=== PATIENT | female | born 1965 | race Caucasian/White ===

== ENCOUNTER 2023-02-16 06:15 | Emergency (ER) | payer OTHER ==
--- OUTSIDE RECORDS SUMMARY | 2023-02-16 06:20 | XMS REPORT | Continuity of Care Document ---
:1965 Author Organization [facility] Address [address] [place] [address] [place] [id number] Care Team Providers Name Role Phone No, Pcp [facility] Primary Care Physician Unavailable PROVIDER, AFFILIATE Attending Clinician Unavailable IVANA NORIEGA Attending Clinician Unavailable VIVIAN HERNANDEZ Attending Clinician Unavailable RO SAM Attending Clinician Unavailable CHARLENE WILL Attending Clinician Unavailable ROBER GRANT Attending Clinician Unavailable ABBI WEBB Attending Clinician Unavailable JESSY ANGELES Attending Clinician Unavailable MD MICHAEL Attending Clinician Unavailable 39, HOLTER Attending Clinician Unavailable CHAY BAKER Attending Clinician Unavailable LAB90 Attending Clinician Unavailable TOMOGRAPHY, CK OPTICAL COHERENCE Attending Clinician Unavail able Mary MCKINLEY, Vivian Ronquillo Attending Clinician [phone] Payers Payer Name Policy Type Policy Number Effective Date Expiration Date S armida [employer] TXP 7 [id number] 2021 CLASSIC NO PREMIUM 00:00:00 R2T Problems Condition Condition Condition Status Onset Resolution Last Treating Co mments Source Name Details Category Date Date Treatment Clinician Date Immunocomp Immunocomp Disease Active 2021-04 K elsey romised romised 2-30 [facility] 00:00: - 00 Externa l Diabetes Diabetes Disease Active 2021-04 Kelse y mellitus mellitus 1-11 Seybol d type 2 type 2 00:00: - without without 00 Externa retinopath retinopath l y y Peripheral Peripheral Disease Active 2021-04 K viridiana sensory sensory 1-11 Seybold neuropathy neuropathy 00:00: - due to due to 00 Externa type 2 type 2 l diabetes diabetes mellitus mellitus Peripheral Peripheral Disease Active 2021-04 Tahmina kemp vascular vascular 1-11 Seybol d disease disease 00:00: - 00 Externa l Type 2 Type 2 Disease Active Luz Marina diabetes diabetes 808 Seybol d mellitus mellitus 00:00: - with with 00 Externa diabetic diabetic l neuropathy neuropathy , without , without long-term long-term current current use of use of insulin insulin (HCC) - (HCC) - Controlled Controlled Primary Primary Disease Active Luz Marina hypertensi hypertensi 12-02 Se ybold on - Not on - Not 00:00: - Controlled Controlled 00 Ex terna l Hyperlipid Hyperlipid Disease Active Tahmina kemp emia emia 12-02 Seybold 00:00: - 00 Externa l Psoriasis Psoriasis Disease Active Anselmo sey - Not - Not 808 Seybold Controlled Controlled 00:00: - 00 Externa l Allergies, Adverse Reactions, Alerts Allergy Allergy Status Severity Reaction(s) Onset Inactive Treating Comm ents Source Name Type Date Date Clinician ERYTHROM [facility] Erythrom Propensi [facility] adverse 00:[facility]: Medical reaction 00 Center s Metformi Propensi Active Luz Marina n ty to 9-11 Seybold adverse 00:00: - reaction 00 Externa s l Erythrom Propensi Active Reaction: Anselmo sey ycin ty to 9-10 body Seybold [facility] adverse 00:00: tremors - reaction 00 and Externa s stomach l upset, Reaction: body tremors and stomach upset Lisinopr Propensi Active Swelling Faby ey il ty to 7-13 Seybold adverse 00:00: - reaction 00 Externa s l Social History Social Habit Start Date Stop Date Quantity Comments Source History SDOH [facility] Std Dr[facility] History SDOH [facility] Alcohol Binge Medical July ter Tobacco use and 2021-12-02 2021-12-02 Smokeless tobacco Ke laloey Seybold - exposure 00:00:00 00:00:00 non-user External Alcohol intake 2020-09-15 2020-09-[address] [facility] 00:[facility]00 00:00:00 non-drinker Medical Cente r (finding) History SDOH 2020-09-15 2020-09-[address] [facility] Alcohol Frequency 00:00:00 00:00:00 [facility] Center Sex [birth year] GEORGE [place] 00:00:00 00:00:00 [facility] Center Smoking Status Start Date Stop Date Source Never smoked tobacco Luz Marina Seyb old - External Medications Ordered Filled Start Stop Current Ordering Indication Dosage Frequency Signature Comments Components Source Medication Medication Date Date Medication? Clinician (SIG) Name Name ASPIRIN 81 Yes Take by Faby ey OR 1-17 mouth Seybold 08:21: daily - 59 Externa l Docusate Yes Take by Luz Marina Calcium 1-17 mouth Seybold (STOOL 08:21: - SOFTENER 59 Externa OR) l Na Yes [id number] Instructio Anselmo sey Sulfate-K 1-17 ns Seybold Sulfate-Mg 00:00: provided - Sulf 00 to Externa (SUPREP patient. l BOWEL PREP Follow KIT) instructio 17.5-3.13-1 ns .6 GM/177ML provided oral by Solution provider. Rosuvastati Yes [id number] 20mg Take 1 Luz Marina n Calcium 1-16 tablet (20 Seyb old 20 MG oral 00:00: mg total) - Tablet 00 by mouth Externa daily l Cholecalcif 2021-04- No [id number] 90355S Take 1 Luz Marina iker 1.25 2-21 03-10 capsule Seybol d MG ([id number] 00:00: 05:59 (50,000 - UT) oral 00 :00 units Externa Capsule total) by l mouth once a week for 12 doses GlipiZIDE 2021-04 Yes [id number] 2.5mg Take 1 K elsey 2.5 MG oral 2-13 tablet Seybol d TABLET SR 00:00: (2.5 mg - 24 HR 00 total) by Externa mouth l daily GlipiZIDE 2021-04 Yes [id number] 2.5mg Take 1 K elsey 2.5 MG oral 2-13 tablet Seybol d TABLET SR 00:00: (2.5 mg - 24 HR 00 total) by Externa mouth l daily glipiZIDE 5 2021-04- No [id number] 5mg Take 1 Luz Marina MG oral 06-05 tablet (5 Seybol d Tablet 00:00: 00:00 mg total) - 00 :00 by mouth Externa daily l (before a meal) glipiZIDE 5 2021-04- No [id number] 5mg Take 1 Luz Marina MG oral 06-05 tablet (5 Seybol d Tablet 00:00: 00:00 mg total) - 00 :00 by mouth Externa daily l (before a meal) Clobetasol 2021-04 Yes [id number] Apply to Luz Marina Propionate 1-11 affected Seybo ld 0.05 % 00:00: areas on - apply 00 the body Externa externally bid for 14 l Ointment days Mometasone 2021-04 Yes [id number] Apply to Luz Marina Furoate 0.1 1-11 face twice Se ybold % apply 00:00: a day - externally 00 Externa Cream l Clobetasol 2021-04 Yes [id number] Apply to Luz Marina Propionate 1-11 affected Seybo ld 0.05 % 00:00: areas on - apply 00 the body Externa externally bid for 14 l Ointment days Mometasone 2021-04 Yes [id number] Apply to Luz Marina Furoate 0.1 1-11 face twice Se ybold % apply 00:00: a day - externally 00 Externa Cream l Clobetasol 2021-04 Yes [id number] Apply to Luz Marina Propionate 1-11 affected Seybo ld 0.05 % 00:00: areas on - apply 00 the body Externa externally bid for 14 l Ointment days Mometasone 2021-04 Yes [id number] Apply to Luz Marina Furoate 0.1 1-11 face twice Se ybold % apply 00:00: a day - externally 00 Externa Cream l Semaglutide Yes [id number] .25mg Inject Luz Marina (0.25 or 9-02 0.25 mg Seybold 0.5 00:00: into the - mg/dose) 2 00 skin once Exte rna mg/1.5 mL a week l SQ Solution Pen-Injecto r Semaglutide 0 Yes [id number] .25mg Inject Luz Marina (0.25 or 9-02 0.25 mg Seybold 0.5 00:00: into the - mg/dose) 2 00 skin once Exte rna mg/1.5 mL a week l SQ Solution Pen-Injecto r Semaglutide 0 Yes [id number] .25mg Inject Luz Marina (0.25 or 9-02 0.25 mg Seybold 0.5 00:00: into the - mg/dose) 2 00 skin once Exte rna mg/1.5 mL a week l SQ Solution Pen-Injecto r Semaglutide 2021- No [id number] .25mg Inject Luz Marina (0.25 or 9-02 12-13 0.25 mg Seybold 0.5 00:00: 00:00 into the - mg/dose) 2 00 :00 skin once Exte rna mg/1.5 mL a week l SQ Solution Pen-Injecto r Metoprolol 0 Yes [id number] 200mg Take 1 Luz Marina Succinate 8-22 tablet Seybold 200 MG oral 00:00: (200 mg - TABLET SR 00 total) by Exter na 24 HR mouth l daily Nitrofurant 2021-0 Yes [id number] 100mg Take 1 Luz Marina oin Monohyd 8-22 capsule Seybo ld Macro 100 00:00: (100 mg - MG oral 00 total) by Externa Capsule mouth 2 l times daily Metoprolol 2021-0 Yes [id number] 200mg Take 1 Luz Marina Succinate 8-22 tablet Seybold 200 MG oral 00:00: (200 mg - TABLET SR 00 total) by Exter na 24 HR mouth l daily Metoprolol 2021-0 Yes [id number] 200mg Take 1 Luz Marina Succinate 8-22 tablet Seybold 200 MG oral 00:00: (200 mg - TABLET SR 00 total) by Exter na 24 HR mouth l daily Metoprolol 2021-0 Yes [id number] 200mg Take 1 Luz Marina Succinate 8-22 tablet Seybold 200 MG oral 00:00: (200 mg - TABLET SR 00 total) by Exter na 24 HR mouth l daily Metoprolol Yes [id number] 200mg Take 1 Luz Marina Succinate 8-22 tablet Seybold 200 MG oral 00:00: (200 mg - TABLET SR 00 total) by Exter na 24 HR mouth l daily Nitrofurant 2021- No [id number] 100mg Take 1 Luz Marina oin Monohyd 8-22 11-11 capsule Seyb old Macro 100 00:00: 00:00 (100 mg - MG oral 00 :00 total) by Externa Capsule mouth 2 l times daily Rosuvastati Yes [id number] 10mg Take 1 Luz Marina n Calcium 8-08 tablet (10 Seyb old 10 MG oral 00:00: mg total) - Tablet 00 by mouth Externa daily l Rosuvastati Yes [id number] 10mg Take 1 Luz Marina n Calcium 8-08 tablet (10 Seyb old 10 MG oral 00:00: mg total) - Tablet 00 by mouth Externa daily l Rosuvastati Yes [id number] 10mg Take 1 Luz Marina n Calcium 8-08 tablet (10 Seyb old 10 MG oral 00:00: mg total) - Tablet 00 by mouth Externa daily l Rosuvastati Yes [id number] 10mg Take 1 Luz Marina n Calcium 8-08 tablet (10 Seyb old 10 MG oral 00:00: mg total) - Tablet 00 by mouth Externa daily l metoprolol Yes 200mg QD Take [address] succinate 5-22 [facility] by [facility] (TOPROL-XL) 14:52: mouth Medic al 200 MG 24 09 daily. Center hr tablet metoprolol Yes 200mg QD Take [address] succinate 5-22 mg by [facility] (TOPROL-XL) 14:52: mouth Medic al 200 MG 24 09 daily. Center hr tablet Vital Signs Vital Name Observation Time Observation Value Comments Source Systolic blood 2022-05-13 14:20:00 137 mm[Hg] Luz Marina Granado - pressure External Diastolic blood 2022-05-13 14:20:00 80 mm[Hg] Israel Granado - pressure External Heart rate 2022-05-13 14:20:00 74 /min Luz Marina S eybold - External Body temperature 2022-05-13 14:20:00 36.56 Nata Faby ey Seybold - External Respiratory rate 2022-05-13 14:20:00 18 /min Faby ey Seybold - External Body height 2022-05-13 14:20:00 157.5 cm Luz Marina S eybold - External Body weight 2022-05-13 14:20:00 83.915 kg Luz Marina Lyn eybold - External BMI 2022-05-13 14:20:00 33.84 kg/m2 Luz Marina S eybold - External Oxygen saturation in 2022-05-13 14:20:00 98 /min Luz Marina Seybold - Arterial blood by External Pulse oximetry Systolic blood 2022-04-08 17:04:00 134 mm[Hg] Luz Marina Seybold - pressure External Diastolic blood 2022-04-08 17:04:00 74 mm[Hg] Kelse y Seybold - pressure External Heart rate 2022-04-08 17:04:00 79 /min Luz Marina Lyn eybold - External Body temperature 2022-04-08 17:04:00 36.83 Nata Faby ey Seybold - External Respiratory rate 2022-04-08 17:04:00 16 /min Faby jarvis Seybold - External Body height 2022-04-08 17:04:00 157.5 cm Luz Marina Lyn eybold - External Body weight 2022-04-08 17:04:00 84.369 kg Luz Marina Lyn eybold - External BMI 2022-04-08 17:04:00 34.02 kg/m2 Luz Marina S eybold - External Oxygen saturation in 2022-04-08 17:04:00 98 /min Luz Marina Seybold - Arterial blood by External Pulse oximetry Systolic blood 2022-03-07 15:51:00 112 mm[Hg] Luz Marina Seybold - pressure External Diastolic blood 2022-03-07 15:51:00 74 mm[Hg] Kelse y Seybold - pressure External Heart rate 2022-03-07 15:51:00 110 /min Luz Marina S eybold - External Body temperature 2022-03-07 15:51:00 37.06 Nata Faby ey Seybold - External Respiratory rate 2022-03-07 15:51:00 16 /min Faby Granado - External Body height 2022-03-07 15:51:00 157.5 cm Luz Marina resendiz - External Body weight 2022-03-07 15:51:00 83.008 kg Luz Marina jarvisboterri - External BMI 2022-03-07 15:51:00 33.47 kg/m2 Luz Marina resendiz - External Oxygen saturation in 2022-03-07 15:51:00 95 /min Luz Marina Granado - Arterial blood by External Pulse oximetry HEIGHT 2020-09-15 13:56:00 157.5 cm WEIGHT 2020-09-15 13:56:00 79.379 kg Procedures This patient has no known procedures. Plan of Care Planned Activity Planned Date Details Comments Source Future Scheduled 2024-05-31 DTAP/TDAP/TD VACCINES ([address] [facility] 00:00:00 - Td or Tdap) [code = Medica l Center DTAP/TDAP/TD VACCINES (2 - Td or Tdap)] Future Scheduled 2024-05-31 DTAP/TDAP/TD VACCINES ([address] [facility] 00:00:00 - Td or Tdap) [code = Medica l Center DTAP/TDAP/TD VACCINES (2 - Td or Tdap)] Future Scheduled 2022-12-26 Influenza Vaccine (#1) [facility] 00:00:00 [code = Influenza Vaccine [facility] Center (#1)] Future Scheduled 2022-12-26 INFLUENZA VACCINE (Season [facility] 00:00:00 Ended) [code = INFLUENZA Med ical Center VACCINE (Season Ended)] Future Scheduled 2022-04-[address] [facility] 00:00:00 (12+) [code = DEPRESSION Med ical Center SCREENING (12+)] Future Scheduled 2022-04-[address] [facility] 00:00:00 (12+) [code = DEPRESSION Med ical Center SCREENING (12+)] Future Scheduled 2021-04-28 MEDICARE ANNUAL WELLNESS [facility] 00:00:00 (YEAR 2 or FIRST YEAR if Med ical Center no IPPE) [code = MEDICARE ANNUAL WELLNESS (YEAR 2 or FIRST YEAR if no IPPE)] Future Scheduled 2021-04-28 MEDICARE ANNUAL WELLNESS [facility] 00:00:00 (YEAR 2 or FIRST YEAR if Med ical Center no IPPE) [code = MEDICARE ANNUAL WELLNESS (YEAR 2 or FIRST YEAR if no IPPE)] Future Scheduled 2014 SHINGLES VACCINES ([address] [facility] 00:00:00 2) [code = SHINGLES Medical Center VACCINES (1 of 2)] Future Scheduled 2014 SHINGLES VACCINES ([address] [facility] 00:00:00 2) [code = SHINGLES Medical Center VACCINES (1 of 2)] Future Scheduled 2009 Lipid panel (procedure) [facility] 00:00:00 [code = 09183586] Medical Ce nter Future Scheduled 2009 Lipid panel (procedure) [facility] 00:00:00 [code = 34720100] Medical Ce nter Future Scheduled 1985 Screening for malignant [facility] 00:00:00 neoplasm of cervix Medical C enter (procedure) [code = 046969354] Future Scheduled 1985 Screening for malignant [facility] 00:00:00 neoplasm of cervix Medical C enter (procedure) [code = 988753394] Future Scheduled 1982 HEPATITIS C SCRE[facility]ING [facility] 00:00:00 [code = HEPATITIS C Medical Center SCREENING] Future Scheduled 1982 HEPATITIS C SCRE[facility]ING [facility] 00:00:00 [code = HEPATITIS C Medical Center SCREENING] Future Scheduled [address] [facility] 00:00:00 virus screening Medical Cent er (procedure) [code = 966813744] Future Scheduled [address] [facility] 00:00:00 Counseling and Screening Med ical Center (12+) [code = Tobacco Cessation Counseling and Screening (12+)] Future Scheduled [address] [facility] 00:00:00 Counseling and Screening Med ical Center (12+) [code = Tobacco Cessation Counseling and Screening (12+)] Future Scheduled 1964 COVID-19 VACCINE (#1) [facility] 00:00:00 [code = COVID-19 VACCINE Med ical Center (#1)] Future Scheduled 1964 COVID-19 VACCINE (#1) [facility] 00:00:00 [code = COVID-19 VACCINE Med [facility] Center (#1)] Future Scheduled 1964 Screening for malignant [facility] 00:00:00 neoplasm of breast Medical C enter (procedure) [code = 046403983] Future Scheduled 1964 CT Colonography (combo) [facility] 00:00:00 [code = CT Colonography [facility] (combo)] Future Scheduled 1964 Screening for malignant [facility] 00:00:00 neoplasm of colon Medical Ce nter (procedure) [code = 062944685] Future Scheduled 1964 Screening for malignant [facility] 00:00:00 neoplasm of colon Medical Ce nter (procedure) [code = 346686179] Future Scheduled 1964 Screening for malignant [facility] 00:00:00 neoplasm of colon Medical Ce nter (procedure) [code = 358054648] Future Scheduled 1964 Screening for malignant [facility] 00:00:00 neoplasm of colon Medical Ce nter (procedure) [code = 051925754] Future Scheduled 1965 Sigmoidoscopy [code = [facility] 00:[facility] Sigmoidoscopy] Medical Cente r Future Scheduled 1964 CT Colonography (combo) [facility] 00:00:00 [code = CT Colonography Medi [facility] Center (combo)] Future Scheduled 1964 Screening for malignant [facility] 00:00:00 neoplasm of colon Medical Ce nter (procedure) [code = 636751251] Future Scheduled 1964 Screening for malignant [facility] 00:00:00 neoplasm of colon Medical Ce nter (procedure) [code = 453065302] Future Scheduled 1964 Screening for malignant [facility] 00:00:00 neoplasm of colon Medical Ce nter (procedure) [code = 856644765] Future Scheduled 1964 Screening for malignant [facility] 00:00:00 neoplasm of colon Medical Ce nter (procedure) [code = 379595759] Future Scheduled 1964 Sigmoidoscopy [code = [facility] 00:[facility] Sigmoidoscopy] Medical [facility] Scheduled 1964 Screening for malignant [facility] 00:00:00 neoplasm of breast Medical C enter (procedure) [code = 643163314] Encounters Start End Encounter Admission Attending Care Care Encounter Source Date/Time Date/Time Type Type Clinicians Facility Department ID 2023-02-13 2023-02-13 Outpatient PROVIDERLUZ MARINA [id number] Luz Marina 00:00:00 00:00:00 AFFILIATE Seyb old 2023-02-12 2023-02-12 Emergency E AZNAUROVA-A BL [facility] [id number] [facility] 09:53:00 13:48:00 Sinan SCHMITZ 2023-01-08 2023-01-08 Outpatient LUZ MARINA HERNANDEZ [id number] Luz Marina 00:00:00 00:00:00 VIVIAN Seybol d 2022-10-28 2022-10-28 Outpatient LUZ MARINA SAM [id number] Luz Marina 00:00:00 00:00:00 RO Seybol d 2022-10-21 2022-10-21 Outpatient CHARLENE WILL [id number] Luz Marina 00:00:00 00:00:00 Seybol d 2022-10-17 2022-10-17 Outpatient CHARLENE WILL [id number] Luz Marina 00:00:00 00:00:00 Seybol d 2022-09-23 2022-09-23 Outpatient LUZ MARINA HERNANDEZ [id number] Luz Marina 00:00:00 00:00:00 VIVIAN Seybol d 2022-09-23 2022-09-23 Outpatient LYNDA NORRIS [id number] Luz Marina 00:00:00 00:00:00 EARLENE ThomasonDA Seybol d 2022-09-23 2022-09-23 Outpatient CHARLENE WILL [id number] Luz Marina 00:00:00 00:00:00 Seybol d 2022-09-09 2022-09-09 Outpatient CHARLENE WILL [id number] Luz Marina 09:45:00 09:45:00 Seybol d 2022-09-09 2022-09-09 Outpatient WILL CHARLENE NORRIS [id number] Luz Marina 00:00:00 00:00:00 Seybol d 2022-09-05 2022-09-05 Outpatient LYNDA LUZ MARINA NORRIS [id number] Luz Marina 11:30:00 11:30:00 H, ROBER Seybol d 2022-09-05 2022-09-05 Outpatient ROBBIELAZARA NORRIS [id number] Luz Marina 00:00:00 00:00:00 H, ROBER Seybol d 2022-09-05 2022-09-05 Outpatient CHARLENE WILL [id number] Luz Marina 00:00:00 00:00:00 Seybol d 2022-08-28 2022-08-28 Outpatient LUZ MARINA WEBB [id number] Luz Marina 00:00:00 00:00:00 ABBI Seybol d 2022-08-19 2022-08-19 Outpatient ROBBIELAZARA NORRIS [id number] Luz Marina 00:00:00 00:00:00 H, ROBER Seybol d 2022-07-25 2022-07-25 Outpatient CHARLENE WILL [id number] Luz Marina 00:00:00 00:00:00 Seybol d 2022-07-15 2022-07-15 Outpatient CHARLENE WILL [id number] Luz Marina 00:00:00 00:00:00 Seybol d 2022-07-15 2022-07-15 Outpatient LUZ MARINA HERNANDEZ [id number] Luz Marina 00:00:00 00:00:00 VIVIAN Seybol d 2022-07-07 2022-07-07 Outpatient JESSY ANGELES [id number] Luz Marina 00:00:00 00:00:00 Seybol d 2022-07-04 2022-07-04 Outpatient LUZ MARINA NORRIS [id number] Luz Marina 00:00:00 00:00:00 Seybol d 2022-07-03 2022-07-03 Outpatient JESSY ANGELES [id number] Luz Marina 12:00:00 12:00:00 Seybol d 2022-07-02 2022-07-02 Outpatient KARTHIK, JESSY WILLISSEY LUZ MARINA [id number] Luz Marina 10:30:00 10:30:00 Seybol d 2022-07-02 2022-07-02 Outpatient KARTHIK, JESSY WILLISSEY LUZ MARINA [id number] Luz Marina 00:00:00 00:00:00 Seybol d 2022-07-02 2022-07-02 Outpatient KARTHIK, JESSY WILLISSEY LUZ MARINA [id number] Luz Marina 00:00:00 00:00:00 Seybol d 2022-07-02 2022-07-02 Outpatient KARTHIK, JESSY LUZ MARINA LUZ MARINA [id number] Luz Marina 00:00:00 00:00:00 Seybol d 2022-07-02 2022-07-02 Outpatient KARTHIK, JESSY LUZ MARINA LUZ MARINA [id number] Luz Marina 00:00:00 00:00:00 Seybol d 2022-07-02 2022-07-02 Outpatient ELIASJuan Francisco NORRIS LUZ MARINA [id number] Luz Marina 00:00:00 00:00:00 MD VINCE Seybol d 2022-07-01 2022-07-01 Outpatient KARTHIK, JESSY LUZ MARINA LUZ MARINA [id number] Luz Marina 00:00:00 00:00:00 Seybol d 2022-07-01 2022-07-01 Outpatient KARTHIK, JESSY LUZ MARINA LUZ MARINA [id number] Luz Marina 00:00:00 00:00:00 Seybol d 2022-07-01 2022-07-01 Outpatient JENNYFERUMER NORRIS LUZ MARINA [id number] Luz Marina 00:00:00 00:00:00 MD Shabbir CLARKEybol d 2022-06-27 2022-06-27 Outpatient JORGE NORRIS LUZ MARINA [id number] Luz Marina 00:00:00 00:00:00 MD Shabbir CLARKEybol grady 2022-06-26 2022-06-26 Outpatient JORGE NORRIS LUZ MARINA [id number] Luz Marina 00:00:00 00:00:00 MD Shabbir CLARKEybol grady 2022-06-26 2022-06-26 Outpatient WILL, CHARLENE NORRIS [id number] Luz Marina 00:00:00 00:00:00 Seybol d 2022-06-26 2022-06-26 Outpatient NICOLETTE CHARLENE NORRIS [id number] Luz Marina 00:00:00 00:00:00 Seybol d 2022-06-26 2022-06-26 Outpatient MARYLUZ MARINA [id number] Luz Marina 00:00:00 00:00:00 VIVIAN Seybol d 2022-05-27 2022-05-27 Outpatient TRACEYLUZ MARINA OLIVIA [id number] Luz Marina 00:00:00 00:00:00 ABBI Seybol d 2022-05-13 2022-05-13 Outpatient JESSY ANGELES LUZ MARINA NORRIS [id number] Luz Marina 08:00:00 08:00:00 Seybol d 2022-05-13 2022-05-13 Outpatient LUZ MARINA NORRIS [id number] Luz Marina 00:00:00 00:00:00 Seybol d 2022-05-12 2022-05-12 Outpatient TRICIA Monroy LUZ MARINA NORRIS [id number] Luz Marina 12:15:00 12:15:00 Seybol d 2022-05-12 2022-05-12 Outpatient TRACEY LUZ MARINA NORRIS [id number] Luz Marina 10:30:00 10:30:00 ABBI Seybol d 2022-05-06 2022-05-06 Outpatient CHARLENE WILL [id number] Luz Marina 00:00:00 00:00:00 Seybol d 2022-05-05 2022-05-05 Outpatient WILL CHARLENE NORRIS [id number] Luz Marina 00:00:00 00:00:00 Seybol d 2022-05-05 2022-05-05 Outpatient CHARLENE WILL [id number] Luz Marina 00:00:00 00:00:00 Seybol d 2022-05-05 2022-05-05 Outpatient LUZ MARINA BAKER [id number] Luz Marina 00:00:00 00:00:00 CHAY Seybol d 2022-05-02 2022-05-02 Outpatient LUZ MARINA NORRIS [id number] Luz Marina 09:00:00 09:00:00 Seybol d 2022-05-01 2022-05-01 Outpatient WILL CHARLENE NORRIS [id number] Luz Marina 00:00:00 00:00:00 Seybol d 2022-04-17 2022-04-17 Outpatient NICOLETTE CHARLENE NORRIS [id number] Luz Marina 00:00:00 00:00:00 Seybol d 2022-04-16 2022-04-16 Outpatient NICOLETTE CHARLENE NORRIS [id number] Luz Marina 00:00:00 00:00:00 Seybol d 2022-04-14 2022-04-14 Outpatient LABDave LUZ MARINA NORRIS [id number] Luz Marina 13:55:00 13:55:00 Seybol d 2022-04-08 2022-04-08 Outpatient CHARLENE WILL [id number] Luz Marina 11:15:00 11:15:00 Seybol d 2022-04-04 2022-04-04 Outpatient LUZ MARINA HERNANDEZ [id number] Luz Marina 00:00:00 00:00:00 VIVIAN Seybol d 2022-04-03 2022-04-03 Outpatient LUZ MARINA HERNANDEZ [id number] Luz Marina 00:00:00 00:00:00 VIVIAN Seybol d 2022-04-03 2022-04-03 Outpatient LUZ MARINA HERNANDEZ [id number] Luz Marina 00:00:00 00:00:00 VIVIAN Seybol d 2022-04-02 2022-04-02 Outpatient LUZ MARINA HERNANDEZ [id number] Luz Marina 00:00:00 00:00:00 VIVIAN Seybol d 2022-04-01 2022-04-01 Outpatient LUZ MARINA HERNANDEZ [id number] Luz Marina 00:00:00 00:00:00 VIVIAN Seybol d 2022-04-01 2022-04-01 Outpatient LUZ MARINA HERNANDEZ [id number] Luz Marina 00:00:00 00:00:00 VIVIAN Seybol d 2022-04-01 2022-04-01 Outpatient LUZ MARINA HERNANDEZ [id number] Luz Marina 00:00:00 00:00:00 VIVIAN Seybol d 2022-03-31 2022-03-31 Outpatient LUZ MARINA HERNANDEZ [id number] Luz Marina 00:00:00 00:00:00 VIVIAN Seybol d 2022-03-10 2022-03-10 Outpatient LUZ MARINA BAKER [id number] Luz Marina 00:00:00 00:00:00 CHAY Seybol d 2022-03-07 2022-03-07 Outpatient CHITSAZZADE LUZ MARINA NORRIS [id number] Luz Marina 11:00:00 11:00:00 H, ROBER Seybol d 2022-03-07 2022-03-07 Outpatient LUZ MARINA BAKER [id number] Luz Marina 09:15:00 09:15:00 CHAY Seybol d 2022-03-07 2022-03-07 Outpatient LUZ MARINA PIKE [id number] Luz Marina 08:30:00 08:30:00 CK Seybol d 2022-03-07 2022-03-07 Outpatient LUZ MARINA SAM [id number] Luz Marina 08:20:00 08:20:00 RO Seybol d 2021-12-27 2021-12-27 Office Manish Hernandez [id number] Luz Marina 09:00:00 10:00:00 Visit Vivian Wilson [id number] Se johanna Ronquillo [id number] 2021-12-13 2021-12-13 Outpatient LUZ MARINA HERNANDEZ [id number] Luz Marina 00:00:00 00:00:00 VIVIAN Seybol d 2021-12-10 2021-12-10 Outpatient LUZ MARINA HERNANDEZ [id number] Luz Marina 00:00:00 00:00:00 VIVIAN Seybol d 2021-12-10 2021-12-10 Outpatient LUZ MARINA HERNANDEZ [id number] Luz Marina 00:00:00 00:00:00 VIVIAN Seybol d 2021-12-06 2021-12-06 Outpatient LAB90 LUZ MARINA NORRIS [id number] Luz Marina 12:10:00 12:10:00 Seybol d 2021-12-06 2021-12-06 Outpatient LUZ MARINA HERNANDEZ [id number] Luz Marina 00:00:00 00:00:00 VIVIAN Sheaybol grady 2021-12-04 2021-12-04 Outpatient LUZ MARINA HERNANDEZ [id number] Luz Marina 00:00:00 00:00:00 VIVIAN Sheaybol d 2021-12-02 2021-12-02 Outpatient LAB90 LUZ MARINA NORRIS [id number] Luz Marina 10:10:00 10:10:00 Seybol d 2021-12-02 2021-12-02 Office Manish Hernandez [id number] Luz Marina 08:30:00 09:15:00 Visit Vivian Steve [id number] Se johanna Ronquillo [id number] 2020-09-15 2020-09-15 Emergency ER [facility] Emergency [id number] [facility] 13:46:00 13:46:00 Results This patient has no known results.
[2023-02-16] MEDS ORDERED: MORPHINE 2 MG/ML SYR ONE (08:46)
[2023-02-16 09:04] LABS: Albumin 3.5 g/dL (3.4-5.0); Bilirubin Direct 0.2 mg/dL (0-0.2); Bilirubin Indirect, Calculated 0.5 mg/dL (0.2-0.8); Bilirubin Total 0.7 mg/dL (0.2-1.0); Magnesium 1.8 mg/dL (1.6-2.4); Protein, Total 6.9 g/dL (6.4-8.2); Troponin High Sensitivity 38.7 pg/mL (<58.9)
--- NOTE | 2023-02-16 10:18 | EDPHYS ---
Physician Documentation [facility] Name: Gwendolyn Mcguire [place] Age: 57 yrs Sex: Female : 1965 Arrival Date: 02/16/2023 Time: 06:15 Bed 6 Private MD: ED Physician Loco Marion HPI: 02/16 06:31 This 57 yrs old Female presents to ER via Unassigned with complaints of Chest Pain. ms3 06:31 57-year-old female with past medical history of diabetes, hypertension, psoriasis ms3 presents for chest pain that awoke her from sleep this morning. Patient states she has had intermittent chest pain for 2 weeks. Patient endorses shortness of breath, nausea. Patient denies diaphoresis.. Historical: - Allergies: 06:32 Azithromycin; jb4 - PMHx: 06:32 DM; HTN; psoriasis; jb4 - Immunization history:: Adult Immunizations up to date. - Social history:: Smoking status: Patient denies any tobacco usage or history of. ROS: 06:31 Constitutional: Negative for fever, and chills. ms3 06:31 Cardiovascular: Positive for chest pain, 06:31 Respiratory: Positive for shortness of breath, 06:31 Abdomen/GI: Positive for nausea, Negative for vomiting, 06:31 Skin: Negative for diaphoresis, Exam: 06:31 Constitutional: This is a well developed, well nourished patient who is awake, alert, ms3 and in no acute distress. Head/Face: Normocephalic, atraumatic. Neck: Trachea midline, no cervical lymphadenopathy. Supple, full range of motion without nuchal rigidity, or vertebral point tenderness. No Meningismus. Chest/axilla: Normal chest wall appearance and motion. Nontender with no deformity. Cardiovascular: Regular rate and rhythm with a normal S1 and S2. No gallops, murmurs, or rubs. Normal PMI, no JVD. No pulse deficits. Respiratory: Lungs have equal breath sounds bilaterally, clear to auscultation and percussion. No rales, rhonchi or wheezes noted. No increased work of breathing, no retractions or nasal flaring. Abdomen/GI: Soft, non-tender, with normal bowel sounds. No distension or tympany. No guarding or rebound. No evidence of tenderness throughout. Skin: Warm, dry with normal turgor. Normal color with no rashes, no lesions, and no evidence of cellulitis. 06:38 ECG was reviewed by the Attending Physician. ms3 Vital Signs: 06:31 Weight 64 kg; jb4 06:51 BP 153 / 78; Pulse 66; Resp 15; Pulse Ox 98% on R/A; nw1 08:01 Pulse 62; Resp 16; ko1 MDM: 06:31 Differential diagnosis: abnormal EKG, acute myocardial infarction, anxiety, coronary ms3 artery disease chest wall pain. 06:32 Patient medically screened. ms3 07:13 ED course: Patient signed out to me by previous physician, in brief patient arrives ec2 today due to concern for chest pain. Plan is to follow-up lab work and reassess the patient. EKG independently reviewed and interpreted by me, shows T wave inversions in the lateral leads, otherwise no acute ST segment elevations, nonconcerning intervals.. 10:02 ED course: Metabolic profile is pertinent for hyperglycemia with a glucose of 330, ec2 troponin is within normal ranges. . 10:17 ED course: On reassessment patient reports resolution in her symptoms. Ultimately ec2 patient is a medium risk chest pain individual with an overall reassuring work-up. I do shared decision-making with the patient and discussed possible inpatient hospitalization for further cardiac evaluation versus outpatient management, states that she has an appointment in 3 days and states that she will prefer to follow-up with primary care doctor. Airplane Rental Clerk for [employer] was used during this time. Patient discharged home, return precautions given. Additionally patient also refusing blood pressure monitoring as well as redraw of lab work.. 10:18 Data reviewed: vital signs. ec2 02/16 06:31 Order name: Basic Metabolic Panel; Complete Time: 10:01 ms3 02/16 06:31 Order name: LFT's; Complete Time: 10:01 ms3 02/16 06:31 Order name: Magnesium; Complete Time: 10:01 ms3 02/16 06:31 Order name: Troponin HS; Complete Time: 10:01 ms3 02/16 06:31 Order name: XRAY Chest (1 view) ms3 02/16 06:31 Order name: EKG; Complete Time: 06:32 ms3 02/16 06:31 Order name: Cardiac monitoring; Complete Time: 06:38 ms3 02/16 06:31 Order name: EKG - Nurse/Tech; Complete Time: 06:38 ms3 02/16 06:31 Order name: IV Saline Lock; Complete Time: 08:29 ms3 02/16 06:31 Order name: Labs collected and sent; Complete Time: 08:29 ms3 02/16 06:31 Order name: O2 Per Protocol; Complete Time: 06:39 ms3 02/16 06:31 Order name: O2 Sat Monitoring; Complete Time: 06:39 ms3 EC:38 Rate is 67 beats/min. Rhythm is regular. QRS [place] is Normal. HI interval is normal. QRS ms3 interval is normal. Clinical impression: NSR w/ Non-specific ST/T Changes. Interpreted by me. Reviewed by me. Administered Medications: 08:33 CANCELLED (Other Intervention Used): morphineor iv 2 mg IVP once over 4 mins ko1 08:34 Drug: morphine IM 2 mg IM once Route: IM; Site: left deltoid; ko1 Disposition Summary: 02/16/23 10:18 Discharge Ordered Notes: Location: Home ec2 Condition: Stable ec2 Diagnosis - Chest pain, unspecified ec2 Discharge Instructions: - Discharge Summary Sheet ec2 - Nonspecific Chest Pain, Adult, [id number] ec2 Forms: - Medication Reconciliation Form ec2 - Thank You Letter ec2 - Antibiotic Education ec2 - Prescription Opioid Use ec2 - Patient Portal Instructions ec2 - Leadership Thank You Letter ec2 Signatures: Dispatcher [employer] EDMS Shawanda Ramirez James, RN RN jb4 Geoff Fallon DO DO ms3 Sandra Shields RN RN ko1 Loco Marion MD MD ec2 Corrections: (The following items were deleted from the chart) 08:33 08:21 morphine IVP or IV 2 mg IVP once over 4 mins ordered. ec2 ko1 08:33 08:31 morphine IVP or IV 2 mg IVP once over 4 mins ordered. ko1 ko1 10:18 10:17 ED course: On reassessment patient reports resolution in her symptoms. Ultimately ec2 patient is a medium risk chest pain individual with an overall reassuring work-up. I do shared decision-making with the patient and discussed possible inpatient hospitalization for further cardiac evaluation versus outpatient management, states that she has an appointment in 3 days and states that she will prefer to follow-up with primary care doctor. Airplane Rental Clerk for [employer] was used during this time. Patient discharged home, return precautions given.. ec2
--- NOTE | 2023-02-16 10:18 | ER ---
Nurse's Notes [facility] Name: Gwendolyn Duran Age: 57 yrs Sex: Female : 1965 Arrival Date: 02/16/2023 Time: 06:15 Bed 6 Private MD: Diagnosis: Chest pain, unspecified Presentation: 02/16 06:31 Chief complaint: Patient states: I am frustrated, I am here to figure out what is wrong jb4 with my chest. I was recently seen at an urgent care. I am having some shortness or breath and nausea. Coronavirus screen: At this time, the client does not indicate any symptoms associated with coronavirus-19. Ebola Screen: No symptoms or risks identified at this time. Onset of symptoms was February 16, 2023. Transition of care: patient was not received from another setting of care. 06:31 Method Of Arrival: Wheelchair jb4 06:31 Acuity: MELODIE 3 jb4 Historical: - Allergies: 06:32 Azithromycin; jb4 - PMHx: 06:32 DM; HTN; psoriasis; jb4 - Immunization history:: Adult Immunizations up to date. - Social history:: Smoking status: Patient denies any tobacco usage or history of. Screenin:48 [facility] ED Fall Risk Assessment (Adult) History of falling in the last 3 months, nw1 including since admission No falls in past 3 months (0 pts) Confusion or Disorientation No (0 pts) Intoxicated or Sedated No (0 pts) Impaired Gait No (0 pts) Mobility Assist Device Used No (0 pt) Altered Elimination No (0 pt) Score/Fall Risk Level 0 - 2 = Low Risk Oriented to surroundings, Maintained a safe environment, Educated pt \T\ family on fall prevention, incl call for assistance when getting out of bed, Assessed \T\ reinforced patient's understanding of fall precautions, Provided non-skid footwear, Hourly rounding (assess needs \T\ fall precautionary measures) done, Used gait belt as appropriate. Abuse screen: Denies threats or abuse. Denies injuries from another. Nutritional screening: No deficits noted. Tuberculosis screening: No symptoms or risk factors identified. Assessment: 06:42 Reassessment: While using manager people, POC explained to patient. While BP was being nw1 assessed, pt c/o pain and took off the bp cuff. Need for VS was explained. Using manager people, explained the need for an IV. While placing tourniquet, pt stated that she wanted her IV only in her hand. Using manager people, explained that the need for an IV in her forearm or higher was needed. Pt was argumentative and undid her tourniquet and refused to look at the security intern. Son was at bedside and attempted to explain to patient the need for the IV. Pt refused to respond or look at the security intern any further. Charge nurse made aware. 06:42 General: Appears uncomfortable, Behavior is agitated, uncooperative, Easily frustrated. la4 Pt took off blood pressure cuff after obtaining initial BP stating that the cuff hurt her right arm. Notified that we would move the blood pressure cuff to the opposite arm after IV placement and blood draw. Tourniquet was placed on pt arm, at that time the patient began to explain it was hard to use sign language with an IV in her arm. It was then explained that we could place the IV in her forearm so that it would be secure and out of the way and not in the bend of the arm. The patient then stated that I did not know what it was like to have to use [place] Sign language and proceeded to remove the tourniquet off her arm and not allow the IV placement at this time. It was decided to give the patient some time to allow for her to calm down. X-ray tech to bedside to complete chest x-ray. Dr. Fallon notified. All pt interactions translated using security intern Emilee #[id number]. Son remains at pt bedside and is attempting to calm pt and talk her into allowing placement of the IV and blood draw. Pt not cooperative at this time. Will continue to monitor.. Cardiovascular: Capillary refill < 3 seconds is brisk Rhythm is sinus rhythm. 07:02 Reassessment: Report given to DAVIN Roy. nw1 08:01 Pain: Pain does not radiate. Pain began gradually, 2-3 days ago. ko1 08:01 Reassessment: Patient is alert, oriented x 3, equal unlabored respirations, skin ko1 warm/dry/pink. continues to refuse blood pressure cuff. 10:26 Reassessment: Patient refused to have a recollect done on the lavender top for lab, she ko1 continues to refuse blood pressure checks and sat monitoring. Vital Signs: 06:31 Weight 64 kg; jb4 06:51 BP 153 / 78; Pulse 66; Resp 15; Pulse Ox 98% on R/A; nw1 08:01 Pulse 62; Resp 16; ko1 ED Course: 06:20 Patient arrived in ED. bp 06:22 Geoff Fallon DO is Attending Physician. ms3 06:32 Triage completed. jb4 06:32 Arm band placed on right wrist. jb4 06:49 Patient has correct armband on for positive identification. Placed in gown. Bed in low nw1 position. Call light in reach. Side rails up X2. Adult w/ patient. Provided Education on: POC via security intern. Pt refused education. monitor technician on. Pulse ox on. pt refused NIBP. Door closed. Noise minimized. Warm blanket given. 06:49 No provider procedures requiring assistance completed. Inserted pt refused IV. Patient nw1 maintains SpO2 saturation greater than 95% on room air. 06:50 XRAY Chest (1 view) In Process Unspecified. EDMS 06:50 Appears agitated. Appears angry. Appears combative. Appears upset. nw1 07:07 Sandar Shields, RN is Primary Nurse. ko1 07:11 Attending Physician role handed off by Geoff Fallon DO ec2 07:11 Loco Marion MD is Attending Physician. ec2 08:03 Missed attempt(s): 22 gauge in right forearm. Bleeding controlled, band aid applied, em1 catheter tip intact. 08:28 Basic Metabolic Panel Sent. ko1 08:28 CBC with Diff Sent. ko1 08:28 LFT's Sent. ko1 08:28 Magnesium Sent. ko1 08:29 Troponin HS Sent. ko1 10:26 Patient did not have IV access during this emergency room visit. ko1 Administered Medications: 08:33 CANCELLED (Other Intervention Used): morphineor iv 2 mg IVP once over 4 mins ko1 08:34 Drug: morphine IM 2 mg IM once Route: IM; Site: left deltoid; ko1 Medication: 06:48 VIS not applicable for this client. nw1 Outcome: 10:18 Discharge ordered by . ec2 10:26 Discharged to home ambulatory, with family, ko1 10:26 Condition: stable 10:26 Discharge instructions given to patient, family, Instructed on discharge instructions, follow up and referral plans. Demonstrated understanding of instructions, follow-up care, 10:29 Patient left the ED. ko1 Signatures: Dispatcher [employer] Vikram Saavedra em1 Skip Tinsley, RN RN jb4 Neville Colby, RN RN bp Geoff Fallon DO DO ms3 Sandra Shields RN RN ko1 Loco Marion MD MD ec2 Shruti Ritter RN RN la4 Eliza Joyner RN RN nw1
--- NOTE | 2023-02-17 11:59 | EKG ---
Test Date: 2023-02-16 Test Time: 06:34:30 Turf Grower: COLEEN MEASUREMENT RESULTS: Intervals: Rate: 67 FL: 152 QRSD: 82 QT: 412 QTc: 435 [place]: P: 18 FL: 152 QRS: 29 T: 152 INTERPRETIVE STATEMENTS: Normal sinus rhythm ST & T wave abnormality, consider lateral ischemia Abnormal ECG No previous ECG available for comparison Electronically Signed On 02-17-23 11:54:41 CDT by Lisandro Whitmore
== END 2023-02-16 10:29 | disposition home or self-care (01) ==
LOC: ER 06:15
DX: R07.89 Other chest pain (principal); I10 Essential (primary) hypertension; Z88.1 Allergy status to other antibiotic agents
CPT/HCPCS: 93005; 80048; 36415; 83735; 80076; 84484; 71045; 96372; 99285; J2270